=== PATIENT | female | born 1940 ===

== ENCOUNTER → 2019-05-03 13:33 | Outpatient (BNVA) | payer MEDICARE, MEDICAID, SELFPAY | PROVIDERS: PCP Internal Medicine; Referring Provider Family Medicine; Visit Provider Nurse Practitioner Adult Health | DX: G44.40 Drug-induced headache, not elsewhere classified, not intractable (principal); I10 Essential (primary) hypertension; G47.30 Sleep apnea, unspecified | CPT/HCPCS: 99204 ==